=== PATIENT | female | born 1995 | race Hispanic/Latino ===

== ENCOUNTER 2025-06-20 05:39 | Inpatient (IN) | payer MEDICAID, OTHER ==
[2025-06-19 11:25] LABS: Hematocrit 42.3 % (34.9-44.5); Hemoglobin 14.1 g/dL (12.0-15.5); Mean Corpuscular Hemoglobin 28.5 pg (27.0-33.0); Mean Corpuscular Volume 85.5 fL (81.6-98.3); Platelet Count 247 10x3/uL (150-450); Red Blood Cell (RBC) Count 4.95 10x6/uL (3.90-5.03); White Blood Cell (WBC) Count 10.53 10x3/uL (3.5-10.5)
[2025-06-19 12:01] LABS: Hep B Surf Ag Non-Reactive S/CO (NonReactive)
[2025-06-19 12:02] LABS: Syphilis Antibody Index 0.07 S/CO (<1.00 Non-Reactive)
[2025-06-19 14:14] VITALS: BMI 38.5
[2025-06-20] MEDS ORDERED: Acetaminophen 500 MG TAB PO PRN (06:41)
[2025-06-20] MEDS ORDERED: Tranexamic Acid 1,000 MG/10 ML VIAL IVP PRN (06:41)
[2025-06-20] MEDS ORDERED: Diphenoxylate HCl/Atropine Tablet PO PRN (06:41)
[2025-06-20] MEDS ORDERED: hydrALAZINE 20 MG/ML VIAL SLOW IVP PRN (06:41)
[2025-06-20] MEDS ORDERED: Methylergonovine 0.2 MG/ML VIAL IM PRN (06:41)
[2025-06-20] MEDS ORDERED: Carboprost 250 MCG/ML AMP IM PRN (06:41)
[2025-06-20] MEDS ORDERED: Ondansetron PF 4 MG/2 ML Vial IVP PRN ×3 (06:41→06:52)
[2025-06-20] MEDS ORDERED: Bicitra 30 ML UDCUP PO PRN (06:41)
[2025-06-20] MEDS ORDERED: Azithromycin 500 MG in Sodium Chloride 0.9% 250 ML 250 ML IVPB SCH (06:45)
[2025-06-20] MEDS ORDERED: Oxytocin 30 units/NS 500 ML 500 ML IV SCH (06:45)
[2025-06-20] MEDS ORDERED: Glucagon 1 MG/ML KIT IM PRN ×2 (06:46→21:00)
[2025-06-20] MEDS ORDERED: Dextrose 50% Abboject 50 ML SYRINGE SLOW IVP PRN ×2 (06:46→21:00)
[2025-06-20] MEDS ORDERED: diphenhydrAMINE 50 MG/ML VIAL IVP PRN (06:52)
[2025-06-20] MEDS ORDERED: Meperidine HCl/PF 25 MG (1 mL) VIAL SLOW IVP PRN (06:52)
[2025-06-20] MEDS ORDERED: Ketorolac Tromethamine 30 MG (1 mL) VIAL IVP PRN (06:52)
[2025-06-20] MEDS ORDERED: Ketorolac Tromethamine 30 MG (1 mL) VIAL IVP SCH (07:00)
[2025-06-20] MEDS ORDERED: Communication Order-Pharmacy FS SCH (07:00)
[2025-06-20] MEDS: Famotidine/PF 20 mg/2ml Vial SLOW IVP PRN (07:16)
[2025-06-20] MEDS: Lantus 1000 UNITS/10 ML VIAL SC SCH (21:15)
[2025-06-21] MEDS ORDERED: Lanolin Ointment 7 GM TUBE TOP PRN (09:37)
[2025-06-21] MEDS ORDERED: Methylergonovine 0.2 MG/ML VIAL IM PRN (09:37)
[2025-06-21] MEDS ORDERED: Bisacodyl 10 MG SUPP PR PRN (09:37)
[2025-06-21] MEDS ORDERED: hydrALAZINE 20 MG/ML VIAL SLOW IVP PRN (09:37)
[2025-06-21] MEDS ORDERED: Boostrix 0.5 ML (Tdap) VIAL (>/=7 yrs of age) IM ONE (09:37)
[2025-06-21] MEDS ORDERED: Simethicone Chewable 80 MG TAB PO PRN (09:37)
[2025-06-21] MEDS ORDERED: Ondansetron PF 4 MG/2 ML Vial IVP PRN (09:37)
[2025-06-21] MEDS ORDERED: Dextrose 50% Abboject 50 ML SYRINGE SLOW IVP PRN (09:41)
[2025-06-21] MEDS ORDERED: Glucagon 1 MG/ML KIT IM PRN (09:41)
[2025-06-21] MEDS ORDERED: Oxytocin 30 units/NS 500 ML 500 ML IV SCH (09:45)
[2025-06-21] MEDS ORDERED: Meperidine HCl/PF 25 MG (1 mL) VIAL SLOW IVP PRN (11:01)
[2025-06-21] MEDS: Ketorolac Tromethamine 30 MG (1 mL) VIAL IVP SCH (17:32)
[2025-06-21] MEDS: CEFAZOLIN 2 GM VIAL ONE (17:43)
[2025-06-21] MEDS: Phenylephrine 40 MG/NS 250 ML 250 ML ONE (17:43)
[2025-06-21] MEDS: Dexamethasone 10 MG/ML VIAL ONE (17:44)
[2025-06-21] MEDS: Hepatitis B Vaccine 10 MCG/0.5 ML SYR ONE (17:44)
[2025-06-21] MEDS: Erythromycin Base 0.5% Oint 1 GM TUBE ONE (17:44)
[2025-06-21] MEDS: Oxytocin 10 UNITS/ML VIAL ONE (17:44)
[2025-06-21] MEDS: Ondansetron PF 4 MG/2 ML Vial ONE (17:44)
[2025-06-21] MEDS: Ferrous Sulfate 325 MG TAB PO SCH (21:32)
[2025-06-22 04:57] LABS: Hematocrit 32.3 % (34.9-44.5); Hemoglobin 10.4 g/dL (12.0-15.5); Mean Corpuscular Hemoglobin 27.4 pg (27.0-33.0); Mean Corpuscular Volume 85.2 fL (81.6-98.3); Platelet Count 197 10x3/uL (150-450); Red Blood Cell (RBC) Count 3.79 10x6/uL (3.90-5.03); White Blood Cell (WBC) Count 13.28 10x3/uL (3.5-10.5)
[2025-06-22] MEDS: HYDROcodone/Acetaminophen 5/325 mg Tablet PO PRN (13:40)
[2025-06-22] MEDS: Ibuprofen 800 MG TAB PO SCH (17:08)
[2025-06-22] MEDS: Acetaminophen 325 MG TAB PO PRN (17:09)
[2025-06-23 15:05] VITALS: BP 147/79; TEMP 98
== END 2025-06-23 16:40 | disposition home or self-care (01) | DRG 787 ==
LOC: CSHLD 05:39 → CSHANTE 12:08 → CSHLD 06-21 08:18 → CSHPED 06-21 11:48
PROVIDERS: ADMIT Obstetrics & Gynecology; ATTEND Obstetrics & Gynecology
PROC: 10D00Z1 Extraction of Products of Conception, Low, Open Approach (ICD-10-PCS; principal; 2025-06-21)
DX: O34.211 Maternal care for low transverse scar from previous cesarean delivery (principal); O10.92 Unspecified pre-existing hypertension complicating childbirth; Z3A.37 37 weeks gestation of pregnancy; Z37.0 Single live birth; O24.429 Gestational diabetes mellitus in childbirth, unspecified control; Q24.9 Congenital malformation of heart, unspecified; O75.89 Other specified complications of labor and delivery; Z79.84 Long term (current) use of oral hypoglycemic drugs; Z79.899 Other long term (current) drug therapy; O99.214 Obesity complicating childbirth; O36.63X0 Maternal care for excessive fetal growth, third trimester, not applicable or unspecified
CPT/HCPCS: 36415; 36416; 51702; 82951; 85027; 86780; 86850; 86900; 86901; 87340; J1100; J1308; J1815; J1885; J2274; J2405; J2590